=== PATIENT | male | born 1975 | race Caucasian/White ===

== ENCOUNTER 2021-05-13 13:02 | Emergency (ER) | payer MEDICARE, OTHER ==
[~2021-05-13] VITALS: Ht 185.4 cm; Wt 154.2 kg
[2021-05-13] MEDS ORDERED: TRULICITY0.75 MG/01 IM (13:11)
== END 2021-05-13 13:13 | disposition home or self-care (01) ==
LOC: ER 13:02
DX: Z76.0 Encounter for issue of repeat prescription (principal)
CPT/HCPCS: 99281

== ENCOUNTER 2021-07-18 10:00 | Emergency (ER) | payer MEDICARE, OTHER ==
[~2021-07-18] VITALS: Ht 185.4 cm; Wt 154.2 kg
[~2021-07-18 10:00] MED LIST: TRULICITY0.75 MG/01 IM
[2021-07-18] MEDS ORDERED: GABA300 PO ×3 (10:11→10:46)
[2021-07-18] MEDS ORDERED: ATOR40TA PO ×2 (10:24→10:46)
[2021-07-18] MEDS ORDERED: FLUO10 PO ×2 (10:26→10:46)
[2021-07-18] MEDS ORDERED: DIVA500EC PO ×2 (10:26→10:46)
[2021-07-18] MEDS ORDERED: FARXIGA10 MG PO ×2 (10:26→10:46)
[2021-07-18] MEDS ORDERED: GLIM4 PO ×2 (10:27→10:46)
[2021-07-18] MEDS ORDERED: Prinivil10 MG PO ×2 (10:27→10:46)
[2021-07-18] MEDS ORDERED: METO50ER PO ×2 (10:28→10:46)
[2021-07-18] MEDS ORDERED: METF500 PO ×2 (10:28→10:46)
[2021-07-18] MEDS ORDERED: TRULICITY0.75 MG/01 SQ ×2 (10:29→10:46)
[2021-07-18] MEDS ORDERED: OMEP20ER PO ×2 (10:29→10:46)
[2021-07-18] MEDS ORDERED: DICLOFENAC SOD100 G1 TOP (10:46)
== END 2021-07-18 11:01 | disposition home or self-care (01) ==
LOC: ER 10:00
DX: Z76.0 Encounter for issue of repeat prescription (principal); I10 Essential (primary) hypertension; E11.9 Type 2 diabetes mellitus without complications; F17.210 Nicotine dependence, cigarettes, uncomplicated
CPT/HCPCS: 99281

== ENCOUNTER 2021-09-29 09:45 | Emergency (ER) | payer MEDICARE, OTHER ==
[~2021-09-29] VITALS: Ht 185.4 cm; Wt 154.2 kg
[~2021-09-29 09:45] MED LIST changes: +ATOR40TA PO; +DICLOFENAC SOD100 G1 TOP; +DIVA500EC PO; +FARXIGA10 MG PO; +FLUO10 PO; +GABA300 PO; +GLIM4 PO; +METF500 PO; +METO50ER PO; +OMEP20ER PO; +Prinivil10 MG PO; +TRULICITY0.75 MG/01 SQ
== END 2021-09-29 10:16 | disposition home or self-care (01) ==
LOC: ER 09:45
DX: M25.561 Pain in right knee (principal); E11.9 Type 2 diabetes mellitus without complications; Z79.899 Other long term (current) drug therapy; Z79.84 Long term (current) use of oral hypoglycemic drugs
CPT/HCPCS: 99282

== ENCOUNTER 2022-04-13 11:36 | Day surgery (SDC) | payer MEDICARE, OTHER ==
[~2022-04-13] VITALS: Ht 185.4 cm; Wt 142.0 kg
[2022-04-13] MEDS ORDERED: ASPI81CH (12:26)
== END 2022-04-13 15:34 | disposition home or self-care (01) ==
LOC: ORSCSDS 11:36
PROVIDERS: Student in an Organized Health Care Education/Training Program
PROC: 0DBL8ZX Excision of Transverse Colon, Via Natural or Artificial Opening Endoscopic, Diagnostic (ICD-10-PCS; principal; 2022-04-13 13:15)
DX: Z12.11 Encounter for screening for malignant neoplasm of colon (principal); D12.3 Benign neoplasm of transverse colon; K57.50 Diverticulosis of both small and large intestine without perforation or abscess without bleeding; F25.8 Other schizoaffective disorders; E11.9 Type 2 diabetes mellitus without complications; K21.9 Gastro-esophageal reflux disease without esophagitis; I10 Essential (primary) hypertension; G47.33 Obstructive sleep apnea (adult) (pediatric); E78.5 Hyperlipidemia, unspecified; E66.01 Morbid (severe) obesity due to excess calories; Z68.41 Body mass index [BMI] 40.0-44.9, adult; F17.210 Nicotine dependence, cigarettes, uncomplicated; Z79.899 Other long term (current) drug therapy
CPT/HCPCS: 82947; 88305; J2250; J2704; J7120

== ENCOUNTER 2023-10-09 15:55 | Emergency (ER) | payer MEDICARE, OTHER ==
[~2023-10-09] VITALS: Ht 185.4 cm; Wt 124.7 kg
[~2023-10-09 15:55] MED LIST changes: +ASPI81CH
[2023-10-09 16:18] VITALS: BP 165/96
[2023-10-09] MEDS ORDERED: Ibuprofen 400 MG Tab PO ONE (16:25)
[2023-10-09] MEDS ORDERED: Acetaminophen 500 MG Tab PO ONE (16:25)
[2023-10-09] MEDS ORDERED: IBUP800 PO (16:27)
[2023-10-09] MEDS ORDERED: AMOCLA875 PO (16:27)
== END 2023-10-09 16:51 | disposition home or self-care (01) ==
LOC: ER 15:55
DX: K04.7 Periapical abscess without sinus (principal); K02.9 Dental caries, unspecified; E11.9 Type 2 diabetes mellitus without complications; Z79.82 Long term (current) use of aspirin; Z79.84 Long term (current) use of oral hypoglycemic drugs; Z79.899 Other long term (current) drug therapy
CPT/HCPCS: 99283; A9270

== ENCOUNTER 2024-03-03 07:47 | Emergency (ER) | payer MEDICARE, OTHER ==
[~2024-03-03] VITALS: Ht 185.4 cm; Wt 127.0 kg
[~2024-03-03 07:47] MED LIST changes: +AMOCLA875 PO; +IBUP800 PO
[2024-03-03 08:13] VITALS: BP 180/111
[2024-03-03] MEDS ORDERED: DEXAMETHAS0.5 MG/5 M PO (08:55)
== END 2024-03-03 09:14 | disposition home or self-care (01) ==
LOC: ER 07:47
DX: K14.0 Glossitis (principal); E11.9 Type 2 diabetes mellitus without complications; Z79.82 Long term (current) use of aspirin; Z79.84 Long term (current) use of oral hypoglycemic drugs; Z79.899 Other long term (current) drug therapy
CPT/HCPCS: 99282

== ENCOUNTER 2024-03-18 00:15 | Emergency (ER) | payer MEDICARE, OTHER ==
[~2024-03-18] VITALS: Ht 185.4 cm; Wt 99.8 kg
[~2024-03-18 00:15] MED LIST changes: +DEXAMETHAS0.5 MG/5 M PO
[2024-03-18 00:52] VITALS: BP 162/102
== END 2024-03-18 01:56 | disposition home or self-care (01) ==
LOC: ER 00:15
DX: F15.10 Other stimulant abuse, uncomplicated (principal)
CPT/HCPCS: 99282

== ENCOUNTER 2024-08-08 04:44 | Emergency (ER) | payer OTHER ==
[~2024-08-08] VITALS: Ht 185.4 cm; Wt 90.7 kg
== END 2024-08-08 05:05 | disposition home or self-care (01) ==
LOC: ER 04:44
DX: L84 Corns and callosities (principal); E11.9 Type 2 diabetes mellitus without complications; Z79.82 Long term (current) use of aspirin; Z79.84 Long term (current) use of oral hypoglycemic drugs; Z79.899 Other long term (current) drug therapy
CPT/HCPCS: 82947; 99283